=== PATIENT | female | born 2000 | race Two or more races ===

== ENCOUNTER 2022-02-11 14:13 | Emergency (ER) | payer SELFPAY ==
[~2022-02-11] VITALS: Ht 152.4 cm; Wt 72.0 kg
[2022-02-11 14:45] LABS: BASO # 0.1 x10^3/uL (0.0-0.2); BASO % 1 % (0-3); EOS # 0.1 x10^3/uL (0.0-0.7); EOS % 1 % (0-3); HEMATOCRIT 38.7 % (36.0-47.0); LYMPH # 2.6 x10^3/uL (1.0-4.8); LYMPH % 33 % (24-48); MEAN CORPUSCULAR HEMOGLOBIN 28 pg (25-35); MEAN CORPUSCULAR HGB CONC 34 g/dL (31-37); MEAN CORPUSCULAR VOLUME 84 fL (79-100); MONO # 0.7 x10^3/uL (0.0-1.1); MONO % 9 % (0-9); NEUT # 4.5 x10^3/uL (1.8-7.7); NEUT % 57 % (31-73); PLATELET COUNT 327 x10^3/uL (140-400); RED BLOOD COUNT 4.62 x10^6/uL (3.50-5.40); RED CELL DISTRIBUTION WIDTH 14.3 % (11.5-14.5); WHITE BLOOD COUNT 7.9 x10^3/uL (4.0-11.0)
[2022-02-11] MEDS ORDERED: IV RINGERS,LACTATED 1000ML 1,000 ML IV SCH (14:45)
[2022-02-11 14:55] LABS: CALCIUM 9.4 mg/dL (8.5-10.1); CREATININE 0.6 mg/dL (0.6-1.0); GFR 126.2; POTASSIUM 3.9 mmol/L (3.5-5.1)
[2022-02-11 14:56] LABS: BACTERIA,URINE MODERATE /HPF (0-FEW)
[2022-02-11 15:01] LABS: ALBUMIN 3.7 g/dL (3.4-5.0); TOTAL BILIRUBIN 0.3 mg/dL (0.2-1.0); TOTAL PROTEIN 7.3 g/dL (6.4-8.2)
--- NOTE | 2022-02-11 16:19 | PHYS DOC ---
Past Medical History Past Medical History: Migraines Additional Past Medical Histor: A0 Past Surgical History: No Surgical History Smoking Status: Never Smoker Alcohol Use: None Drug Use: None General Adult EDM: Chief Complaint: ABDOMINAL PAIN HPI: HPI: Patient is a 21 year old A0 female who presents with 2-day history of lower abdominal pain radiating to her right flank. Patient states the cramping felt similar to prior menstrual periods, but she is not currently menstruating. Patient reports associated dysuria. She took some pain pills from her home country of [facility], but they have not relieved her pain. Patient's last menstrual period began on the eighth or ninth of last month. Prior to last month, she had not had a menstrual period for about 1 year. Patient denies fever, chills, generalized weakness, nausea, vomiting, diarrhea, constipation, hematuria. Review of Systems: Review of Systems: Constitutional: Denies fever, chills or generalized weakness Eyes: Denies change in visual acuity, visual field deficits or discharge HENT: Denies ear pain, nasal congestion or sore throat Respiratory: Denies cough or shortness of breath Cardiovascular: Denies chest pain, palpitations or edema GI: Denies abdominal pain, nausea, vomiting, bloody stools or diarrhea : Denies dysuria or hematuria Musculoskeletal: Denies back pain or joint pain Integument: Denies rash or other skin lesion Neurologic: Denies headache, focal weakness or sensory changes Heart Score: C/O Chest Pain: No Current Medications: Current Medications Medications (Trade) Dose Ordered Sig/Mari Start Time Stop Time Status Last Admin Dose Admin Ringer's Solution 1,000 ml @ 1,000 mls/hr Q1H 02/11/22 14:45 02/11/22 15:44 DC 02/11/22 15:08 1,000 MLS/HR Allergies: Allergies: Allergies Coded Allergies Type Severity Reaction Last Updated Verified No Known Drug Allergies 02/11/22 No Physical Exam: PE: Constitutional: Well developed, well nourished, no acute distress, non-toxic appearance. HENT: Normocephalic, atraumatic, bilateral external ears normal. Eyes: EOMI, conjunctiva normal, no discharge. Neck: Normal range of motion, no stridor. Thorax: Equal thoracic expansion, no increased work of breathing. Abdomen: Bowel sounds normal, soft, mild low abdominal tenderness without rebound or guarding, negative McBurney's point tenderness, negative Rovsing sign, no masses, no pulsatile masses. Skin: Warm, dry, no erythema, no rash. Back: No tenderness, no CVA tenderness. Extremities: No cyanosis, no clubbing, ROM intact, no edema. Neurologic: Alert and oriented x4, normal motor function, normal sensory func tion, steady and symmetrical upright gait, no focal deficits noted. Current Patient Data: Labs: Laboratory Tests Test 02/11/22 14:29 02/11/22 14:35 02/11/22 14:38 Urine Collection Type Unknown Urine Color (Auto) Yellow Urine Turbidity Clear Urine pH (Auto) 5.5 (<5.0-8.0) Urine Specific Electra 1.037 (1.000-1.030) Urine Protein (Auto) Negative mg/dL (Negative) Urine Glucose (Auto)(UA) Negative mg/dL (Negative) Urine Ketones (Auto) Negative mg/dL (Negative) Urine Blood (Auto) Negative (Negative) Urine Nitrite Negative (Negative) Urine Bilirubin (Auto) Negative (Negative) Urine Urobilinogen (Auto) Normal mg/dL (Normal) Urine Leukocyte Esterase (Auto) Negative (Negative) Urine RBC 1-2 /HPF (0-2) Urine WBC 1-4 /HPF (0-4) Urine Squamous Epithelial Cells Many /LPF Urine Bacteria Moderate /HPF (0-FEW) Urine Mucus Marked /LPF White Blood Count 7.9 x10^3/uL (4.0-11.0) Red Blood Count 4.62 x10^6/uL (3.50-5.40) Hemoglobin 13.0 g/dL (12.0-15.5) Hematocrit 38.7 % (36.0-47.0) Mean Corpuscular Volume 84 fL (79-100) Mean Corpuscular Hemoglobin 28 pg (25-35) Mean Corpuscular Hemoglobin Concent 34 g/dL (31-37) Red Cell Distribution Width 14.3 % (11.5-14.5) Platelet Count 327 x10^3/uL (140-400) Neutrophils (%) (Auto) 57 % (31-73) Lymphocytes (%) (Auto) 33 % (24-48) Monocytes (%) (Auto) 9 % (0-9) Eosinophils (%) (Auto) 1 % (0-3) Basophils (%) (Auto) 1 % (0-3) Neutrophils # (Auto) 4.5 x10^3/uL (1.8-7.7) Lymphocytes # (Auto) 2.6 x10^3/uL (1.0-4.8) Monocytes # (Auto) 0.7 x10^3/uL (0.0-1.1) Eosinophils # (Auto) 0.1 x10^3/uL (0.0-0.7) Basophils # (Auto) 0.1 x10^3/uL (0.0-0.2) Sodium Level 143 mmol/L (136-145) Potassium Level 3.9 mmol/L (3.5-5.1) Chloride Level 105 mmol/L (98-107) Carbon Dioxide Level 27 mmol/L (21-32) Anion Gap 11 (6-14) Blood Urea Nitrogen 10 mg/dL (7-20) Creatinine 0.6 mg/dL (0.6-1.0) Estimated GFR (Cockcroft-Gault) 126.2 BUN/Creatinine Ratio 17 (6-20) Glucose Level 90 mg/dL (70-99) Calcium Level 9.4 mg/dL (8.5-10.1) Total Bilirubin 0.3 mg/dL (0.2-1.0) Aspartate Amino Transferase (AST) 20 U/L (15-37) Alanine Aminotransferase (ALT) 29 U/L (14-59) Alkaline Phosphatase 84 U/L (46-116) Total Protein 7.3 g/dL (6.4-8.2) Albumin 3.7 g/dL (3.4-5.0) Albumin/Globulin Ratio 1.0 (1.0-1.7) Lipase 168 U/L (73-393) POC Urine HCG, Qualitative Hcg negative (Negative) Laboratory Tests 02/11/22 14:35 Laboratory Tests 02/11/22 14:35 Vital Signs: Vital Signs Date Time Temp Pulse Resp B/P (MAP) Pulse Ox O2 Delivery O2 Flow Rate FiO2 02/11/22 17:28 83 20 107/71 (83) 98 Room Air 02/11/22 14:18 98.3 86 18 124/60 (81) 97 Room Air 98.3 Radiology/Procedures: Radiology/Procedures: PROCEDURE: PELVIS COMPLETE US PELVIS COMPLETE Clinical Indication: Reason: suprapubic pain / Spl. Instructions: / History: Comparison: None. TECHNIQUE: Real-time ultrasound imaging of the pelvis using transabdominal window is performed. Findings: Uterus measures 8.6 x 5.3 x 3.8 cm. There is no focal abnormality. The endometrial stripe is normal measuring 1.3 cm. The ovaries are similar in size and demonstrate normal blood flow. There is no pelvic free fluid. No evidence of adnexal mass. IMPRESSION: Normal transabdominal pelvic ultrasound. Electronically signed by: Rudolph Rubi MD (02/11/2022 5:00 PM) [facility] Course & Med Decision Making: Course & Med Decision Making Pertinent Labs and Imaging studies reviewed. (See chart for details) Patient is a 21-year-old female who presents with lower abdominal pain radiating to right flank and dysuria. Work-up today is reassuring and does not reveal any acute abnormalities. Her current pain may be related to oligomenorrhea, therefore advise she follow-up with [facility]IE[facility] TECHNICAL OFF[facility] for further evaluation and management of lower abdominal pain and irregular/infrequent menstrual periods. Discussed findings/lack thereof with the patient and reassured her that she has no evidence of acute pathology today. Return precautions were provided. Patient understands and is agreeable to discharge plan. Cyn Disclaimer: Cyn Disclaimer: This electronic medical record was generated, in whole or in part, using a voice recognition dictation system. Departure Departure Impression: Primary Impression: Lower abdominal pain Disposition: HOME / SELF CARE / HOMELESS Condition: STABLE Referrals: NO PCP (PCP) Patient Instructions: Abdominal Pain, [id number], Abdominal Pain, Women Additional Instructions: Puede bambi ibuprofeno (Advil, Motrin) o naproxen (Aleve) para duran dolor. Por favor hacer ren augusta con duran manual arts teacher para investigar y tratar duran dolor. INSTRUCCIONES GENERALES DE VINOD DEL DEPARTAMENTO DE EMERGENCIA Azeem por venir hoy al Departamento de Emergencias (ED) de [facility] y confiarnos duran atencin. Confiamos en que haya tenido ren experiencia positiva en nuestro Departamento de Emergencias. Si desea hablar con la gerencia del departamento, puede llamar al director al . KEN INSTRUCCIONES DE SEGUIMIENTO SON LAS SIGUIENTES: 1. Rach un seguimiento con duran mdico de atencin primaria. Si no tiene un mdico de cabecera, solicite ren lista de recursos de mdicos o clnicas que puedan ayudarlo con la atencin de seguimiento. 2. El proveedor de emergencia garcia interpretado ken estudios de imgenes, si se ordenaron. El especialista en imgenes de radiologa tambin los kali. Si hay un cambio en los hallazgos, se le notificar en 48 horas cuando sea posible. 3. Si se garcia realizado ren prueba de laboratorio o un cultivo, se revisarn ken resultados y se le notificar si necesita un cambio en el tratamiento. 4. Siga las instrucciones verbalizadas y consulte las copias impresas si es necesario. INSTRUCCIONES E INFORMACIN ADICIONALES: 1. Duran atencin hoy garcia sido supervisada por un mdico especialmente capacitado en atencin de emergencia. Muchos problemas requieren ms de ren evaluacin para un diagnstico y tratamiento completos. Le recomendamos que programe duran augusta de seguimiento segn lo recomendado para garantizar el tratamiento completo de duran enfermedad o lesin. Si no puede obtener atencin de seguimiento y contina teniendo un problema, o si duran condicin empeora, le recomendamos que regrese al servicio de urgencias. 2. No podemos determinar de manera davis duran condicin por telfono ni podemos demond consejos mdicos slidos por telfono. Por estas razones de seguridad, si llama para pedir consejo mdico, le pediremos que vaya al servicio de urgencias para ren evaluacin adicional. 3. Si tiene alguna pregunta sobre estas instrucciones de vinod, llame al ED al . INFORMACIN DE SEGURIDAD: En inters de la seguridad, el bienestar y la prevencin de lesiones; le r ecomendamos que use duran cinturn de seguridad, si fuma; bastante fumador, y alentamos a la rox a usar un kia protector para andar en bicicleta y otros eventos deportivos que presenten un mayor riesgo de lesiones en la domonique. SI KEN SNTOMAS EMPEORAN O SE DESARROLLAN NUEVOS SNTOMAS, O SI TIENE PREOCUPACIONES SOBRE DURAN CONDICIN; O SI DURAN CONDICIN EMPEORA MIENTRAS ESPERA DURAN AUGUSTA DE SEGUIMIENTO; PNGASE EN CONTACTO CON DURAN MDICO DE ATENCIN PRIMARIA, EL MDICO CUYO NOMBRE Y NMERO LE DIERON, O REGRESE AL ED INMEDIATAMENTE. SUKHWINDER ZAMORA February 11, 2022 16:19
--- NOTE | 2022-02-11 17:02 | RAD ---
US PELVIS COMPLETE Clinical Indication: Reason: suprapubic pain / Spl. Instructions: / History: Comparison: None. TECHNIQUE: Real-time ultrasound imaging of the pelvis using transabdominal window is performed. Findings: Uterus measures 8.6 x 5.3 x 3.8 cm. There is no focal abnormality. The endometrial stripe is normal m easuring 1.3 cm. The ovaries are similar in size and demonstrate normal blood flow. There is no pelvic free fluid. No evidence of adnexal mass. IMPRESSION: Normal transabdominal pelvic ultrasound. Electronically signed by: Rudolph Rubi MD (02/11/2022 5:00 PM) [facility]
[2022-02-11] MEDS ORDERED: KETOROLAC 15 MG/ML VIAL. IVP ONE (17:15)
[2022-02-11 17:28] VITALS: BP 107/71
== END 2022-02-11 17:35 | disposition home or self-care (01) ==
LOC: ER 14:13
DX: R10.31 Right lower quadrant pain (principal); G43.909 Migraine, unspecified, not intractable, without status migrainosus
CPT/HCPCS: 36415; 76856; 80053; 81001; 81025; 83690; 85025; 87086; 96361; 96374; 99284; J1885; J7120